=== PATIENT | male | born 1970 | race Caucasian/White ===

== ENCOUNTER 2016-08-23 00:19 | Emergency (ER) | payer OTHER, SELFPAY ==
[2016-08-23] MEDS ORDERED: Ondansetron HCl/PF 4 MG/2 ML Vial ONE (01:40)
[2016-08-23 02:06] LABS: #Basophils 0.1 thou/uL (0.0-0.2); #Eosinphils 0.1 thou/uL (0.0-0.7); #Monocytes 0.5 thou/uL (0.11-0.59); #Neutrophils 5.9 thou/uL (1.40-6.50); %Basophils 1.2 % (0.0-1.0); %Eosinophils 1.9 % (0.0-10.0); %Monocytes 7.1 % (0.0-10.0); Mean Platelet Volume 9.7 fL (7.4-10.4); Red Blood Cell (RBC) Count 3.74 mill/uL (4.70-6.10); White Blood Cell (WBC) Count 7.1 thou/uL (4.8-10.8)
[2016-08-23 02:08] LABS: ALT (SGPT) 30 U/L (0-55); AST (SGOT) 33 U/L (5-34); Alkaline Phosphatase 58 U/L (40-150); Anion Gap 13 mmol/L (10-20); BUN (Urea Nitrogen) 16 mg/dL (8.9-20.6); Bilirubin, Total 2.5 mg/dL (0.2-1.2); Calc. Creatinine Clearance 0 mL/min (70-130); Calcium 8.5 mg/dL (7.8-10.44); Carbon Dioxide 18 mmol/L (22-29); Chloride 108 mmol/L (98-107); Estimated GFR-MDRD 68; Globulin 2.4 g/dL (2.4-3.5); Lipase 39 U/L (8-78); Protein, Total 6.2 g/dL (6.0-8.3)
[2016-08-23] MEDS ORDERED: Pantoprazole 40 MG VIAL ONE (03:22)
--- NOTE | 2016-08-23 03:50 | ERRECORD ---
[facility] EMERGENCY RECORD HPI ABDOMINAL PAIN (00:52 WMEI) CHIEF COMPLAINT: Patient presents for evaluation of abdominal pain. HISTORIAN: History provided by patient, hz of end stage liver dz on transplant waiting list diffuse abd pain started today denies n/v. LOCATION MALE: Symptoms are generalized. QUALITY: Pain is sharp in nature. TIME COURSE: Gradual onset of symptoms, 8 hrs. ASSOCIATED WITH: No associated fever, No associated flank pain, No associated nausea, No associated vomiting. RELIEVED BY: Patient's condition relieved by nothing. EXACERBATED BY: Patient's condition exacerbated by nothing. ROS (00:55 WMEI) CONSTITUTIONAL: Negative constitutional review of systems, Historian denies chills, denies fever. EYES: Historian denies eye pain, denies eye discharge. ENT: Historian denies rhinorrhea, denies sore throat. CARDIOVASCULAR: Historian denies chest pain, no radiation, Historian denies diaphoresis. RESPIRATORY: Historian denies cough, denies shortness of breath. GI: Historian reports abdominal pain, denies diarrhea, denies nausea, denies vomiting. GENITOURINARY MALE: Historian denies dysuria, denies urinary urgency. MUSCULOSKELETAL: Historian denies joint stiffness, denies joint swelling. SKIN: Historian denies skin changes, denies skin lesions. NEUROLOGIC: Historian denies confusion, denies mental status changes. ALLERGIC/IMMUNOLOGIC: Historian denies eczema, denies food allergies. PSYCHIATRIC: Historian denies anxiety, denies depression. stopped alcohol 15 yrs ago. PAST MEDICAL HISTORY (00:28 PGRI) MEDICAL HISTORY: Flu vaccine not up to date, Tetanus not up to date, Pneumococcal vaccine not up to date, Flu vaccine not up to date, Tetanus not up to date, Pneumococcal vaccine not up to date, Past medical history includes history of diabetes, Type II, CIRRHOSIS. Varices. HEP C.ascities, anemia. MALE SURGICAL HISTORY: esophageal varices Surgical history of hernia repair X2. history of ammniocentesis. PSYCHIATRIC HISTORY: No previous psychiatric history. SOCIAL HISTORY: Patient currently uses tobacco, smokes cigarettes, daily, Patient has smoked for 30 years, Patient smokes 1 pack per day, Patient denies drug use, Patient currently uses tobacco, smokes cigarettes, Patient smokes 2-3 cigs/day packs per day, QUIT DRINKING ETOH IN 2004. &a-1R&a+25V*p+0X*[id number]*c202B*c15G*c2P*p-0X&a-25V&a+1R Name: Cuate Brown : 1970 M46 MedRec: [id number] AcctNum: [id number] Prepared: Sat Aug 23, 2016 08:12 by Interface Page 1 of 3 pMD [facility] EMERGENCY RECORD KNOWN ALLERGIES No Known Drug Allergies CURRENT MEDICATIONS Lasix: TABLET : Strength - 40 mg : ORAL Patient Dose: 1 tab(s) Oral once a day. (01:54 PGRI) ciprofloxacin: SUSPENSION, MICROCAPSULE RECONSTITUTED : Strength - 500 mg/5 mL : ORAL Patient Dose: 500 mg Oral once a day. (01:54 PGRI) metolazone: TABLET : Strength - 5 mg : ORAL Patient Dose: 5 mg Oral once a day. (01:55 PGRI) lactulose: SOLUTION, ORAL : Strength - 10 gram/15 mL : ORAL Patient Dose: 1 cap(s) Oral once a day. (01:56 PGRI) VITAL SIGNS VITAL SIGNS: BP: 116/71, Pulse: 113, Resp: 18 (Non-Labored), Temp: 98.0 (Oral), Pain: 8, O2 sat: 98 on Room Air, Time: 08/23/2016 00:25. (00:25 PGRI) BP: 103/60, Pulse: 113, Resp: 20, O2 sat: 95 on Room Air, Time: 08/23/2016 02:05. (02:05 PGRI) PHYSICAL EXAM (08:05 WMEI) CONSTITUTIONAL: Vital Signs Reviewed, Patient afebrile, Blood pressure normal, Respiratory rate normal, Patient alert and oriented to person, place and time. HEAD: Head exam included findings of head atraumatic, normocephalic. EYES: Extraocular muscles intact, Conjunctiva normal, Sclera normal, non jaundiced. ENT: Ear exam normal, Nose exam normal, Pharynx exam normal. NECK: Neck exam included findings of normal range of motion, Trachea midline. RESPIRATORY CHEST: Breath sounds clear, Chest exam included findings of chest movement symmetrical. CARDIOVASCULAR: Cardiovascular exam included findings of heart rate regular rate and rhythm, Heart sounds normal. ABDOMEN MALE: Abdominal exam included findings of abdomen tender, diffusely, Bowel sounds normal, Splenomegaly present, 2-4 cm below left costal margin, no distension, no mass. BACK: no tenderness, no costovertebral angle tenderness. UPPER EXTREMITY: Upper extremity exam included findings of inspection normal, Range of motion normal, Motor strength normal. LOWER EXTREMITY: Lower extremity exam included findings of inspection normal, Range of motion normal, Motor strength normal, &a-1R&a+25V*p+0X*[id number]*c202B*c15G*c2P*p-0X&a-25V&a+1R Name: Cuate Brown : 1970 M46 MedRec: [id number] AcctNum: [id number] Prepared: Sat Aug 23, 2016 08:12 by Interface Page 2 of 3 pMD [facility] EMERGENCY RECORD Luis Alberto's negative. NEURO: [place] coma scale 15, Neuro exam findings include patient oriented to person, place and time, Speech normal. SKIN: Skin exam included findings of skin warm, dry, and normal in color, non jaundiced. LYMPHATIC: Lymphatic exam normal. PSYCHIATRIC: Psychiatric exam included findings of patient oriented to person place and time, Normal affect, Judgment normal, Insight normal. 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 MEDICATION ADMINISTRATION SUMMARY Drug Name: Protonix intravenous, Dose Ordered: 40 mg, Route: IV Push, Status: Given, Time: 03:27 08/23/2016, Drug Name: morphine intravenous, Dose Ordered: 4 mg, Route: IV Push, Status: Given, Time: 03:21 08/23/2016, Drug Name: sodium chloride 0.9 % intravenous, Dose Ordered: 20 mcg/kg/hr, Route: IV Fluid Infusion, Status: Given, Time: :49 08/23/2016, Drug Name: Zofran intravenous, Dose Ordered: 4 mg, Route: IV Push, Status: Given, Time: :49 08/23/2016, Drug Name: morphine intravenous, Dose Ordered: 4 mg, Route: IV Push, Status: Given, Time: 01:48 08/23/2016, Detailed record available in Medication Service section. PROBLEM LIST No recorded problems DIAGNOSIS (03:42 WMEI) FINAL: PRIMARY: Abdominal Pain, ADDITIONAL: end stage liver disease, mesenteric thrombosis. PRESCRIPTION No recorded prescriptions DISPOSITION PATIENT: Disposition Type: Eloped, Disposition: Against Medical Advice. (03:42 WMEI) Patient left the department. (03:44 PGRI) Gannon: PGRI=RENAN Guillen, Christi WMEI=DO Warren William &a-1R&a+25V*p+0X*[id number]*c202B*c15G*c2P*p-0X&a-25V&a+1R Name: Cuate Brown : 1970 M46 MedRec: [id number] AcctNum: [id number] Prepared: Juvneal Aug 23, 2016 08:12 by Interface Page 3 of 3 pMD MTDD
--- NOTE | 2016-08-23 03:56 | PICIS ---
[facility] EMERGENCY RECORD TRIAGE (00:27 PGRI) TRIAGE NOTES: Pt complains of fever/dehydration/swollen abdomen/headache since yesterday. (00:27 PGRI) PATIENT: NAME: Cuate Brown, AGE: 46, GENDER: male, : Sun 1970, TIME OF GREET: Sat Aug 23, 2016 00:19, PREFERRED LANGUAGE: Australian, ETHNICITY: Not or , ECODE BILLING MAP: [facility], SSN: [id number], Zip Code: [address], KG WEIGHT: 99.79, PHONE: , , , PERSON ID: [id number], PCP: None. (00:27 PGRI) PAYMENT: [employer]. (01:17) COMPLAINT: Multiple Complaints. (00:27 PGRI) ADMISSION: URGENCY: 3 Urgent, ADMISSION SOURCE: Home, TRANSPORT: Walk-in, BED: TRIAGE. (00:27 PGRI) TRIAGE SCREENING: Patient denies suicidal ideation, Patient denies presence of domestic violence. (00:28 PGRI) PROVIDERS: TRIAGE NURSE: Christi Guillen RN. (00:27 PGRI) VITAL SIGNS: BP 116/71, Pulse 113, Resp 18, (Non-Labored), Temp 98.0, (Oral), Pain 8, O2 Sat 98, on Room Air, Time 08/23/2016 00:25. (00:25 PGRI) PREVIOUS VISIT ALLERGIES: No Known Drug Allergies. (00:27 PGRI) No Known Drug Allergies. (00:28 PGRI) KNOWN ALLERGIES No Known Drug Allergies CURRENT MEDICATIONS Lasix: TABLET : Strength - 40 mg : ORAL Patient Dose: 1 tab(s) Oral once a day. (01:54 PGRI) ciprofloxacin: SUSPENSION, MICROCAPSULE RECONSTITUTED : Strength - 500 mg/5 mL : ORAL Patient Dose: 500 mg Oral once a day. (01:54 PGRI) metolazone: TABLET : Strength - 5 mg : ORAL Patient Dose: 5 mg Oral once a day. (01:55 PGRI) lactulose: SOLUTION, ORAL : Strength - 10 gram/15 mL : ORAL Patient Dose: 1 cap(s) Oral once a day. (01:56 PGRI) VITAL SIGNS VITAL SIGNS: BP: 116/71, Pulse: 113, Resp: 18 (Non-Labored), Temp: 98.0 (Oral), Pain: 8, O2 sat: 98 on Room Air, Time: 08/23/2016 00:25. (00:25 PGRI) BP: 103/60, Pulse: 113, Resp: 20, O2 sat: 95 on Room Air, Time: 08/23/2016 02:05. (02:05 PGRI) NURSING ASSESSMENT: HEAD-TO-TOE (00:28 PGRI) CONSTITUTIONAL: Patient arrives, via hospital wheelchair, &a-1R&a+25V*p+0X*x8775P*c202B*c15G*c2P*p-0X&a-25V&a+1R Name: Cuate Brown : 1970 M46 MedRec: [id number] AcctNum: [id number] Prepared: Sat Aug 23, 2016 08:18 by Interface Page 1 of 10 pMD [facility] EMERGENCY RECORD Unsteady gait, Assistance to cart, History obtained from patient, Patient appears, in distress due to pain, Patient cooperative, Patient alert, Oriented to person, place and time, Skin warm, Skin dry, Skin normal in color, Mucous membranes pink, Mucous membranes moist, Patient complains of multiple complaints, pt arrives to ER in hospital wheelchair with stating he is dehydrated and has fever. Max temp 101.0 per . pt has cirrhosis and is currently on transplant list. pt states started tonight he has had severe pain in abdomen and abdomen has become more swollen than normal. denies sore throat/cough/sob/cp. pt also c/o headache. PAIN: aching pain, headache abdomen, on a scale 0-10 patient rates pain as 8, Nothing has been tried to alleviate the pain. SKIN: Skin assessment findings include skin warm, Skin dry, Skin normal in color. NEURO: Pupils equally round and reactive to light, Able to close eyes, Face symmetrical, Speech normal, no ptosis, no nystagmus, no visual changes, no facial droop, no facial numbness, no swelling, no paresthesias, GCS:, Eye opening: (4) - Spontaneous, Verbal: (5) - Oriented/conversive, Motor: (6) - Obeys commands/Spontaneous, GCS Total: 15, Hand grasps equal, Upper extremity strength strong, no numbness to upper extremities, Lower extremity strength strong, Foot press equal, no numbness to lower extremities, no associated dizziness present, no associated fever, no associated memory loss, no associated loss of consciousness, no associated motor ability changes, no associated nausea, no associated alterations in sensation, no associated personality changes, no associated posturing, no associated seizures, no associated syncopal episode, no associated vomiting, no associated weakness. ENT: Ear assessment findings include ear normal to inspection, Nasal assessment findings include nose normal to inspection, Mouth and throat assessment findings include mouth inspection normal. RESPIRATORY/CHEST: Breath sounds clear, Respiratory assessment findings include respiratory effort easy, Respirations regular, Conversing normally, Neck and chest exam findings include trachea midline, Chest expansion equal, Chest movement symmetrical, no signs of distress, no retractions noted, no cyanosis, no jugular vein distension, no tenderness to palpation, no crepitus noted, no subcutaneous emphysema noted, no deformity noted, no associated cough noted, Associated with fever, Maximum temperature 101.0, oral, per . CARDIOVASCULAR: Cardiovascular assessment findings include heart rate, tachycardic, Rate 110, Heart rhythm normal sinus, Heart sounds normal, S1, S2, Left radial pulse +3(easily palpated, considered normal), Right radial pulse +3(easily palpated, considered normal), Left dorsalis pedis pulse +3(easily palpated, considered normal), Right dorsalis pedis pulse +3(easily palpated, considered normal), No associated diaphoresis, no associated dyspnea, no associated dizziness, no associated edema, no &a-1R&a+25V*p+0X*m6500E*c202B*c15G*c2P*p-0X&a-25V&a+1R Name: Cuate Brown : 1970 M46 MedRec: [id number] AcctNum: [id number] Prepared: Sat Aug 23, 2016 08:18 by Interface Page 2 of 10 pMD [facility] EMERGENCY RECORD associated palpitations, no associated paresthesias, no associated syncopal episode, no associated weakness, No history of pulmonary embolism, No history of DVT or leg swelling. ABDOMEN: Abdomen assessment findings include abdomen symmetrical, Abdomen, firm, full, distended, non-tender, Bowel sound normal, no associated nausea, no associated vomiting, no associated diarrhea, no associated constipation, no associated weight change, no associated appetite change, no associated foreign travel. GENITOURINARY MALE: Male genitourinary assessment findings include external genitalia normal, no associated urinary complaints. SAFETY: Side rails up, Cart/Stretcher in lowest position, Family at bedside, Call light within reach, Hospital ID band on. NURSING PROCEDURE: IV PATIENT IDENITIFIER: Patient actively involved in identification process, Patient's identity verified by patient stating name, Patient's identity verified by hospital ID bracelet. (01:50 MVIL) IV SITE 1: IV therapy indicated for hydration, IV therapy indicated for medication administration, IV established, to the right antecubital, using an 18 gauge catheter, in one attempt. (01:50 MVIL) FOLLOW-UP SITE 1: After procedure, 2x3 ensure dressing applied, After procedure, IV line connections checked and properly labeled, After procedure, no drainage at IV site, After procedure, no swelling at IV site, After procedure, no redness at IV site. (01:50 MVIL) NOTES: Notes: Iv discontinued due to patient being discharged. IV catheter intact. (03:42 PGRI) NURSING PROCEDURE: NURSE NOTES (03:34 PGRI) NURSES NOTES: Notes: pt to be transferred out. called transfer center about patient wanting to go to [facility] instead of [facility] (insurance). transfer center states patient has no reason to come to them and that he needs to go to [facility] because they are familiar with his underlying diagnosis. patient still refusing to go to [facility] at this time and becoming agitated with ermd and nurse. Pt wishes to sign out AMA. patient and understand the risks of leaving hospital including and verbalize understanding. IV removed and patient left from hospital. NURSING PROCEDURE: TRANSPORT TO TESTS PATIENT IDENTIFIER: Patient actively involved in identification process, Patient's identity verified by patient stating name, Patient's identity verified by patient stating date. (01:05 PGRI) Patient actively involved in identification process, Patient's identity verified by patient stating name, Patient's identity verified by patient stating date. (02:23 PGRI) TRANSPORT TO TESTS: Patient transported to CT scan, via cart, Accompanied by x-ray experimental technician. (01:05 PGRI) &a-1R&a+25V*p+0X*a7100R*c202B*c15G*c2P*p-0X&a-25V&a+1R Name: Cuate Brown : 1970 M46 MedRec: [id number] AcctNum: [id number] Prepared: Sat Aug 23, 2016 08:18 by Interface Page 3 of 10 pMD [facility] EMERGENCY RECORD Patient transported to CT scan, via cart, Accompanied by x-ray experimental technician. (02:23 PGRI) FOLLOW-UP: After procedure, patient returned to emergency department. (01:14 PGRI) SAFETY: Side rails up, Cart/Stretcher in lowest position, Family at bedside, Call light within reach, Hospital ID band on. (01:05 PGRI) Side rails up, Cart/Stretcher in lowest position, Family at bedside, Call light within reach, Hospital ID band on. (02:23 PGRI) ORDER DETAILS Order Name: Ammonia, Status: Active, Time: 00:57 08/23/2016, User: CATHY, - Ordered for: DO Warren William, - Entered by: DO Warren William - Sat Aug 23, 2016 00:57, - Quantity: 1, Order Name: CBC with Differential, Status: Active, Time: 00:49 08/23/2016, User: CATHY, - Ordered for: DO Warren William, - Entered by: DO Warren William - Sat Aug 23, 2016 00:49, - Quantity: 1, Order Name: Comprehensive Metabolic Panel, Status: Active, Time: 00:49 08/23/2016, User: CATHY, - Ordered for: DO Warren William, - Entered by: DO Warren William - Sat Aug 23, 2016 00:49, - Quantity: 1, Order Name: CT Abdomen Pelvis W Con, Status: Active, Time: 02:09 08/23/2016, User: EI, - Ordered for: DO Warren William, - Entered by: DO Warren William - Sat Aug 23, 2016 02:09, - Quantity: 1, Order Name: CT Abdomen Pelvis WO Con, Status: Active, Time: 00:49 08/23/2016, User: SocialRadarTRINY, - Ordered for: DO Warren William, - Entered by: DO Warren William - Sat Aug 23, 2016 00:49, - Quantity: 1, Order Name: Lipase, Status: Active, Time: 00:49 08/23/2016, User: CATHY, - Ordered for: DO Warren William, - Entered by: DO Warren William - Sat Aug 23, 2016 00:49, - Quantity: 1, Order Name: Urinalysis with Microscopic, Status: Active, Time: 00:49 08/23/2016, User: SocialRadarTRINY, - Ordered for: DO Warren William, - Entered by: DO Warren William - Sat Aug 23, 2016 00:49, - Quantity: 1. MEDICATION ADMINISTRATION SUMMARY Drug Name: Protonix intravenous, Dose Ordered: 40 mg, Route: IV Push, &a-1R&a+25V*p+0X*r3360D*c202B*c15G*c2P*p-0X&a-25V&a+1R Name: Cuate Brown : 1970 M46 MedRec: [id number] AcctNum: [id number] Prepared: Sat Aug 23, 2016 08:18 by Interface Page 4 of 10 D [facility] EMERGENCY RECORD Status: Given, Time: 03:27 08/23/2016, Drug Name: morphine intravenous, Dose Ordered: 4 mg, Route: IV Push, Status: Given, Time: 03:21 08/23/2016, Drug Name: sodium chloride 0.9 % intravenous, Dose Ordered: 20 mcg/kg/hr, Route: IV Fluid Infusion, Status: Given, Time: 01:49 08/23/2016, Drug Name: Zofran intravenous, Dose Ordered: 4 mg, Route: IV Push, Status: Given, Time: 01:49 08/23/2016, Drug Name: morphine intravenous, Dose Ordered: 4 mg, Route: IV Push, Status: Given, Time: 01:48 08/23/2016, Detailed record available in Medication Service section. MEDICATION SERVICE morphine intravenous: Order: morphine intravenous (morphine sulfate) - Dose: 4 mg : IV Push Schedule: Now Ordered by: Fausto Warren DO Entered by: Fausto Warren DO Sat Aug 23, 2016 01:09 , Acknowledged by: Christi Guillen RN Sat Aug 23, 2016 01:14 Documented as given by: Agustina Briscoe RN Sat Aug 23, 2016 01:48 Patient, Medication, Dose, Route and Time verified prior to administration. Amount given: 4MG, IV SITE #1 IVP, initial medication, Slowly, Catheter placement confirmed via flush prior to administration, IV site without signs or symptoms of infiltration during medication administration, No swelling during administration, No drainage during administration, IV flushed after administration, Correct patient, time, route, dose and medication confirmed prior to administration, Patient advised of actions and side-effects prior to administration, Allergies confirmed and medications reviewed prior to administration, Patient in position of comfort, Side rails up, Cart in lowest position, Family at bedside. morphine intravenous: Order: morphine intravenous (morphine sulfate) - Dose: 4 mg : IV Push Schedule: Now Ordered by: Fausto Warren DO Entered by: Fausto Warren DO Sat Aug 23, 2016 03:20 Documented as given by: Agustina Briscoe RN Sat Aug 23, 2016 03:21 Patient, Medication, Dose, Route and Time verified prior to administration. Amount given: 4MG, IV SITE #1 IVP, subsequent different medication, Slowly, Catheter placement confirmed via flush prior to administration, IV site without signs or symptoms of infiltration during medication administration, No swelling during administration, No drainage during administration, IV flushed after administration, Correct patient, time, route, dose and medication confirmed prior to administration, Patient advised of actions and side-effects prior to administration, Allergies confirmed and medications reviewed prior to &a-1R&a+25V*p+0X*p7400J*c202B*c15G*c2P*p-0X&a-25V&a+1R Name: Cuate Brown : 1970 M46 MedRec: [id number] AcctNum: [id number] Prepared: Sat Aug 23, 2016 08:18 by Interface Page 5 of 10 pMD [facility] EMERGENCY RECORD administration, Patient in position of comfort, Side rails up, Cart in lowest position, Family at bedside. Protonix intravenous: Order: Protonix intravenous (pantoprazole sodium) - Dose: 40 mg : IV Push Schedule: Now Ordered by: Fausto Warren DO Entered by: Fausto Warren DO Sat Aug 23, 2016 03:21 Documented as given by: Agustina Briscoe RN Sat Aug 23, 2016 03:27 Patient, Medication, Dose, Route and Time verified prior to administration. Amount given: 40MG, Catheter placement confirmed via flush prior to administration, IV site without signs or symptoms of infiltration during medication administration, No swelling during administration, No drainage during administration, IV flushed after administration, Correct patient, time, route, dose and medication confirmed prior to administration, Patient advised of actions and side-effects prior to administration, Allergies confirmed and medications reviewed prior to administration, Patient in position of comfort, Side rails up, Cart in lowest position, Family at bedside. sodium chloride 0.9 % intravenous: Order: sodium chloride 0.9 % intravenous (0.9 % sodium chloride) - Dose: 20 mcg/kg/hr : IV Fluid Infusion Ordered by: Fausto Warren DO Entered by: Fausto Warren DO Sat Aug 23, 2016 00:51 , Acknowledged by: Christi Guillen RN Sat Aug 23, 2016 01:03 Documented as given by: Agustina Briscoe RN Sat Aug 23, 2016 01:49 Patient, Medication, Dose, Route and Time verified prior to administration. Amount given: 200ML/HR, IV SITE #1 IV fluids established for hydration, IV SITE #1 into right antecubital, IV SITE #1 1st bag hung, amount 1 Liter hung, IV SITE #1 After bolus completed rate changed to 200 ml/hr, Catheter placement confirmed via flush prior to administration, IV site without signs or symptoms of infiltration during medication administration, No swelling during administration, No drainage during administration, IV flushed after administration, Correct patient, time, route, dose and medication confirmed prior to administration, Patient advised of actions and side-effects prior to administration, Allergies confirmed and medications reviewed prior to administration, Patient in position of comfort, Side rails up, Cart in lowest position, Family at bedside. : Follow Up : Response assessment performed, No signs or symptoms of allergic reaction noted, _IV SITE #1:_, IV fluid infusion discontinued, on Sat Aug 23, 2016 03:42, Total fluid hydration time IV site 1 1 hour, 55 minutes, ., Total amount infused: 200ml, Advised not to ambulate without assistance, Patient in position of comfort, Side rails up, Cart in lowest position, Family at bedside. (03:42 PGRI) Zofran intravenous: Order: Zofran intravenous (ondansetron HCl) &a-1R&a+25V*p+0X*z9569W*c202B*c15G*c2P*p-0X&a-25V&a+1R Name: Cuate Brown : 1970 M46 MedRec: [id number] AcctNum: [id number] Prepared: Sat Aug 23, 2016 08:18 by Interface Page 6 of 10 pMD [facility] EMERGENCY RECORD - Dose: 4 mg : IV Push Schedule: Now Ordered by: Fausto Warren DO Entered by: Fausto Warren DO Sat Aug 23, 2016 01:09 , Acknowledged by: Christi Guillen RN Sat Aug 23, 2016 01:14 Documented as given by: Agustina Briscoe RN Sat Aug 23, 2016 01:49 Patient, Medication, Dose, Route and Time verified prior to administration. Amount given: 4MG, IV SITE #1 IVP, initial medication, Catheter placement confirmed via flush prior to administration, IV site without signs or symptoms of infiltration during medication administration, No swelling during administration, No drainage during administration, IV flushed after administration, Correct patient, time, route, dose and medication confirmed prior to administration, Patient advised of actions and side-effects prior to administration, Allergies confirmed and medications reviewed prior to administration, Patient in position of comfort, Side rails up, Cart in lowest position, Family at bedside. HPI ABDOMINAL PAIN (00:52 WMEI) CHIEF COMPLAINT: Patient presents for evaluation of abdominal pain. HISTORIAN: History provided by patient, hz of end stage liver dz on transplant waiting list diffuse abd pain started today denies n/v. LOCATION MALE: Symptoms are generalized. QUALITY: Pain is sharp in nature. TIME COURSE: Gradual onset of symptoms, 8 hrs. ASSOCIATED WITH: No associated fever, No associated flank pain, No associated nausea, No associated vomiting. RELIEVED BY: Patient's condition relieved by nothing. EXACERBATED BY: Patient's condition exacerbated by nothing. ROS (00:55 WMEI) CONSTITUTIONAL: Negative constitutional review of systems, Historian denies chills, denies fever. EYES: Historian denies eye pain, denies eye discharge. ENT: Historian denies rhinorrhea, denies sore throat. CARDIOVASCULAR: Historian denies chest pain, no radiation, Historian denies diaphoresis. RESPIRATORY: Historian denies cough, denies shortness of breath. GI: Historian reports abdominal pain, denies diarrhea, denies nausea, denies vomiting. GENITOURINARY MALE: Historian denies dysuria, denies urinary urgency. MUSCULOSKELETAL: Historian denies joint stiffness, denies joint swelling. SKIN: Historian denies skin changes, denies skin lesions. NEUROLOGIC: Historian denies confusion, denies mental status changes. &a-1R&a+25V*p+0X*a5093K*c202B*c15G*c2P*p-0X&a-25V&a+1R Name: Cuate Brown : 1970 M46 MedRec: [id number] AcctNum: [id number] Prepared: Sat Aug 23, 2016 08:18 by Interface Page 7 of 10 pMD [facility] EMERGENCY RECORD ALLERGIC/IMMUNOLOGIC: Historian denies eczema, denies food allergies. PSYCHIATRIC: Historian denies anxiety, denies depression. stopped alcohol 15 yrs ago. [facility] MED[facility] H[facility]ORY: Flu vaccine not up to date, Tetanus not up to date, Pneumococcal vaccine not up to date, Flu vaccine not up to date, Tetanus not up to date, Pneumococcal vaccine not up to date, Past medical history includes history of diabetes, Type II, CIRRHOSIS. Varices. HEP C.ascities, anemia. MALE SURGICAL HISTORY: esophageal varices Surgical history of hernia repair X2. history of ammniocentesis. PSYCHIATRIC HISTORY: No previous psychiatric history. SOCIAL HISTORY: Patient currently uses tobacco, smokes cigarettes, daily, Patient has smoked for 30 years, Patient smokes 1 pack per day, Patient denies drug use, Patient currently uses tobacco, smokes cigarettes, Patient smokes 2-3 cigs/day packs per day, QUIT DRINKING ETOH IN 2004. PHYSICAL EXAM (08:05 [facility]) CONSTITUTIONAL: Vital Signs Reviewed, Patient afebrile, Blood pressure normal, Respiratory rate normal, Patient alert and oriented to person, place and time. HEAD: Head exam included findings of head atraumatic, normocephalic. EYES: Extraocular muscles intact, Conjunctiva normal, Sclera normal, non jaundiced. ENT: Ear exam normal, Nose exam normal, Pharynx exam normal. NECK: Neck exam included findings of normal range of motion, Trachea midline. RESPIRATORY CHEST: Breath sounds clear, Chest exam included findings of chest movement symmetrical. CARDIOVASCULAR: Cardiovascular exam included findings of heart rate regular rate and rhythm, Heart sounds normal. ABDOMEN MALE: Abdominal exam included findings of abdomen tender, diffusely, Bowel sounds normal, Splenomegaly present, 2-4 cm below left costal margin, no distension, no mass. BACK: no tenderness, no costovertebral angle tenderness. UPPER EXTREMITY: Upper extremity exam included findings of inspection normal, Range of motion normal, Motor strength normal. LOWER EXTREMITY: Lower extremity exam included findings of inspection normal, Range of motion normal, Motor strength normal, Luis Alberto's negative. NEURO: [place] coma scale 15, Neuro exam findings include patient oriented to person, place and time, Speech normal. SKIN: Skin exam included findings of skin warm, dry, and normal in color, non jaundiced. &a-1R&a+25V*p+0X*r3241H*c202B*c15G*c2P*p-0X&a-25V&a+1R Name: Cuate Brown : 1970 M46 MedRec: [id number] AcctNum: [id number] Prepared: [facility] Aug 23, 2016 08:18 by Interface Page 8 of 10 pMD [facility] EMERGENCY RECORD LYMPHATIC: Lymphatic exam normal. PSYCHIATRIC: Psychiatric exam included findings of patient oriented to person place and time, Normal affect, Judgment normal, Insight normal. LAB INTERPRETATION (03:53 WMEI) INTERPRETATION: I reviewed the lab results, CBC abnormal, Hemoglobin decreased, hct 12.8, Liver functions abnormal, Direct bilirubin elevated, Lipase normal. EVENTS TRANSFER: Triage to Emergency Triage. (Sat Aug 23, 2016 00:27 PGRI) Emergency Triage to Emergency Room -01. (00:27 PGRI) Removed from Emergency Emergency Room -. 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 PROBLEM LIST No recorded problems DIAGNOSIS (03:42 WMEI) FINAL: PRIMARY: Abdominal Pain, ADDITIONAL: end stage liver disease, mesenteric thrombosis. DISPOSITION PATIENT: Disposition Type: Eloped, Disposition: Against Medical Advice. (03:42 WMEI) Patient left the department. (03:44 PGRI) PRESCRIPTION No recorded prescriptions IMAGING AMA/LWBS: Image captured from scanner. (03:43 PGRI) *SUPPLY CHARGE SHEET: Image captured from scanner. (03:43 PGRI) CT REPORT: Image captured from scanner. (05:11 PGRI) Page 2 added. Image captured from scanner. (05:11 PGRI) Page 3 added. Image captured from scanner. (05:11 PGRI) Page 4 added. Image captured from scanner. (05:11 PGRI) Page 5 added. Image captured from scanner. (05:11 PGRI) Page 6 added. Image captured from scanner. (05:12 PGRI) ADMIN (08:07 WMEI) DIGITAL SIGNATURE: DO Warren William. &a-1R&a+25V*p+0X*m4064O*c202B*c15G*c2P*p-0X&a-25V&a+1R Name: Cuate Brown : 1970 6 MedRec: [id number] AcctNum: [id number] Prepared: Sat Aug 23, 2016 08:18 by Interface Page 9 of 10 pMD [facility] EMERGENCY RECORD [place]: MVIL=RENAN Briscoe, Agustina PGRI=RENAN Guillen, Christi WMEI=DO Warren William &a-1R&a+25V*p+0X*l8831U*c202B*c15G*c2P*p-0X&a-25V&a+1R Name: Cuate Brown : 1970 6 MedRec: [id number] AcctNum: [id number] Prepared: Sat Aug 23, 2016 08:18 by Interface Page 10 of 10 pMD MTDD
--- NOTE | 2016-08-23 21:05 | CT ---
PRELIMINARY REPORT/[facility]/EMERGENCY AFTER HOURS PROCEDURE: \H\EXAM: \N\CT Abdomen and Pelvis Without Intravenous Contrast. \H\CLINICAL HISTORY: \N\46 years old, male; Pain and condition or disease; Ascites and gallbladder condition and hernia a nd liver condition and spleen condition; Complications not specified; Hernia not specified; Splenome erin; Other: Large gallbladder; Cirrhosis and hepatitis and portal hypertension; Hepatitis type c - chronic; Abdominal pain; Generalized; Prior surgery; Surgery date: 6+ months; Surgery type: Pt state s he has had two hernia surgeries. ; Patient HX: Pt to er for abdominal pain. Pt states he has cirrh osis of liver and his abdomen is swollen more than normal. ; \H\TECHNIQUE: \N\Axial computed tomography images of the abdomen and pelvis without intravenous contrast. Coronal reformatted images were created and reviewed. \H\ EXAM DATE/TIME: \N\08/23/2016 1:04 AM \H\ COMPARISON: \N\No relevant prior studies available. \H\FINDINGS: \N\Limitations: Masses and lesions in the solid organs including traumatic injury and vascular and i nfectious pathology can be missed without intravenous contrast. Lower thorax: Gastroesophageal venous varices ABDOMEN: Hepatobiliary: Cholelithiasis gallbladder fundus Enlarged portal and splenic veins demonstrating mur al calcification. Common bile duct normal caliber Cirrhosis Pancreas: unremarkable Spleen: Spleen 23.3 cm AP an enlarged Adrenals: Unremarkable as visualized. Kidneys and ureters: Slight bilateral nephrolithiasis. No hydronephrosis. Stomach and bowel: Lack of oral contrast limits optimal evaluation of the bowel. No bowel obstructio n. \H\ \N\Appendix: Appendix normal Intraperitoneal space: Peritoneal mesenteric edema Retroperitoneal space: Retroperitoneal edema PELVIS: Bladder: Unremarkable CT appearance. Reproductive: unremarkable ABDOMEN and PELVIS: Bones: Unremarkable for age. Soft tissues: Small supraumbilical hernia containing fat and possibly portosystemic collateral vesse ls Pelvic raysa Vasculature: No abdominal aortic aneurysm. Lymph nodes: Shotty lymph node prominence \H\IMPRESSION: \N\- Cirrhosis with splenomegaly and portal hypertension including gastroesophageal venous varices - Cholelithiasis ; no acute cholecystitis - Enlarged portal and splenic veins demonstrating mural calcification. Contrast-enhanced CT with ora l and IV contrast would be of aid in evaluating this unless contraindicated unless if prior CTs with contrast are available for correlation.. - Small supraumbilical hernia containing fat and possibly portosystemic collateral vessels - Slight bilateral nephrolithiasis. No hydronephrosis. Thank you for allowing us to participate in the care of your patient. Dictated and Authenticated by: Cuate Peres MD 08/23/2016 1:43 AM Central Time ([place] \T\ [place]) FINAL REPORT CT ABDOMEN AND PELVIS WITHOUT CONTRAST: DATE: 08/23/16. FINDINGS: Spiral CT of the abdomen and pelvis was done without oral or IV contrast. Axial slices were acquire d, then coronal reconstructions were done. The lung bases are clear. The liver is somewhat small and has an irregular margin consistent with t he history of cirrhosis. The spleen is very large, measuring over 23 cm in length. The pancreas wa s unremarkable within the limitations of a noncontrast study. The gallbladder is large measuring 11 cm in length. A calcification is seen in its fundus that is presumed to be gallstone. The adrenal glands were unremarkable. Some calcifications are seen in the right kidney and possibly the left. No gross renal masses were seen within the limitations of the noncontrast study. There is no distention of bowel to suggest obstruction. There is abundant fecal material in the col on. There are inflammatory or edematous changes in the paracolic gutters, particularly on the right side and within the mesentery itself. Collateral vessels are noted in this patient in many locatio ns including around the esophagus and the periumbilical regions consistent with portal hypertension. A small fat-filled umbilical hernia present. There is a little edema in the periumbilical region of unknown significance. The pelvis showed no mass, large fluid collection, or gross inflammatory c hanges. The lumbar spine showed no acute findings. IMPRESSION: 1. Cirrhosis with marked splenomegaly and evidence of portal hypertension including varices in the gastroesophageal region and collaterals in the periumbilical areas. Additionally, the portal venous system is quite large and even has some mural calcification in it. 2. Large gallbladder containing gallstones. 3. Small bilateral nonobstructing renal calculi. 4. Edematous changes in the paracolic gutters and mesentery. Report in agreement with preliminary reading by [facility]. See CT with contrast to follow. POS: HOME
--- NOTE | 2016-08-23 21:08 | CT ---
PRELIMINARY REPORT/[facility]/EMERGENCY AFTER HOURS PROCEDURE: Addendum created by Gerard Mackay MD on 08/23/2016 3:16 AM Central Time ([place] \T\ [place]) Wall the third portion of the duodenum demonstrates mild equivocal thickening which raises the possi bility of is not definitely diagnostic of duodenitis. Increased attenuation of the deep central mesentery and the fat along the right anterior pararenal f ascia can be attributed to sequelae of portal hypertension. No evidence of bowel ischemia. Findings discussed with Dr. Warren at time of interpretation. Initial Report created on 08/23/2016 3:11 AM Central Time ([place] \[place]\ [place]) \H\ EXAM: \N\CT Abdomen and Pelvis With Intravenous Contrast. \H\ CLINICAL HISTORY: \N\46 years old, male; Abnormal findings; Abnormal radiologic finding of the abdomen; Radiologic exa m and body structure: Ct abd/pel; Prior surgery; Surgery date: 6+ months; Surgery type: Pt states he has had 2 hernia repair surgeries. ; Patient HX: Pt just recently had a ct abd/pel without contrast sent to [facility]. Compare study with this exam using iv contrast. Pt has abdominal pain. ; \H\TECHNIQUE: \N\Axial computed tomography images of the abdomen and pelvis with intravenous contrast. Coronal reformatted images were created and reviewed. \H\ CONTRAST: \N\93 mL of ISOVUE 370 administered intravenously. \H\ COMPARISON: \N\CT Abdomen Pelvis WO Con 08/23/2016 1:04:46 AM \H\ FINDINGS: \N\Lower thorax: Gastroesophageal varices. ABDOMEN: Hepatobiliary: Hepatic cirrhosis. Cholelithiasis. No cholecystitis. No bile duct dilation. Pancreas: Unremarkable. No mass. No ductal dilation. Spleen: Splenomegaly. Adrenals: Unremarkable. No mass. Kidneys and ureters: Unremarkable. No solid mass. No hydronephrosis. Stomach and bowel: Unremarkable. No obstruction. No mucosal thickening. Appendix: Normal appendix. Intraperitoneal space: Unremarkable. No free air. No significant fluid collection. PELVIS: Bladder: Unremarkable. No mass. Reproductive: Unremarkable as visualized. ABDOMEN and PELVIS: Bones: No acute fracture. Soft tissues: Umbilical cellulitis. Vasculature: Large occlusive but nonocclusive thrombus at the confluence of the SMV, portal vein, an d splenic vein, with extension into the proximal aspects of all 3 vessels. Lymph nodes: Unremarkable. No enlarged lymph nodes. \H\IMPRESSION: \N\1. Large occlusive but nonocclusive thrombus at the confluence of the SMV, portal vein, and splen ic vein, with extension into the proximal aspects of all 3 vessels. This cannot be appreciated on th e recent noncontrast study. 2. Hepatic cirrhosis with splenomegaly and gastroesophageal varices. 3. Umbilical cellulitis. Thank you for allowing us to participate in the care of your patient. Dictated and Authenticated by: Gerard Mackay MD 08/23/2016 3:11 AM Central Time ([place] \T\ [place]) FINAL REPORT CT ABDOMEN AND PELVIS WITH CONTRAST: DATE: 08/23/16. FINDINGS: Following the initial noncontrast study, due to the findings on the scan, a repeat study with IV con trast was requested. Axial slices were acquired, then coronal reconstructions were done. This postcontrast study adds pertinent information to the patient's situation. Large amounts of bryce t are seen in the portal venous system at the confluence of the portal vein, splenic vein, and super ior mesenteric vein. Clot is present in large amounts at the confluence and extends into the proxim al portion of each of these veins. The remainder of the study shows findings that have already been described on the noncontrast scan i ncluding cirrhosis, marked splenomegaly, marked gallbladder enlargement with gallstones, small nonob structing renal calculi, and a small umbilical hernia with nearby edema in the skin. Another incide ntal finding was a small peripheral cyst of the left kidney. See noncontrast report for further det ails. IMPRESSION: Thrombosis of the portal venous system as described above, including involvement of the portal vein, splenic vein, and superior mesenteric vein. In spite of the large amount of clot, some blood still seems to get around the relative obstruction. See noncontrast report for further details. Report in agreement with preliminary reading by [employer]. POS: HOME
== END 2016-08-23 05:09 | disposition home or self-care (01) ==
LOC: BURERS 00:19
DX: K72.90 Hepatic failure, unspecified without coma (principal); K55.069 Acute infarction of intestine, part and extent unspecified; E11.9 Type 2 diabetes mellitus without complications; F17.210 Nicotine dependence, cigarettes, uncomplicated
CPT/HCPCS: 74176; 74177; 80053; 82140; 83690; 85025; 96361; 96374; 96375; 96376; C9113; J2270; J2405